=== PATIENT | male | born 1990 | race Caucasian/White ===

== ENCOUNTER 2020-10-09 18:31 | Emergency (ER) | payer SELFPAY | END 2020-10-09 20:07 | disposition home or self-care (01) | LOC: MADERS 18:31 | DX: R07.89 Other chest pain (principal); R00.2 Palpitations; R06.02 Shortness of breath; E03.9 Hypothyroidism, unspecified; Z79.899 Other long term (current) drug therapy | CPT/HCPCS: 71045; 84443 ==